=== PATIENT | female | born 1965 | race Caucasian/White ===

== ENCOUNTER 2016-06-15 13:40 | Outpatient (CLI) ==
--- NOTE | 2016-06-15 15:02 | DI ---
EXAM: Two x-rays of the chest. Comparison: 12/10/2007. Reason for study: Edema of lower extremity. FINDINGS: No pneumothorax, pleural effusion, or focal consolidation. The cardiac silhouette is not enlarged. Degenerative changes are seen in the thoracic spine. Impression: No acute cardiopulmonary process.
== END 2016-06-15 13:41 | disposition home or self-care (01) ==
LOC: RAD 13:40
PROVIDERS: ATTEND Physician Assistant
DX: R60.0 Localized edema (principal)